=== PATIENT | male | born 1945 | race Two or more races ===

== ENCOUNTER 2018-01-03 01:16 | Emergency (ER) | payer OTHER ==
[~2018-01-03] VITALS: Ht 165.1 cm; Wt 73.5 kg
[2018-01-03] MEDS ORDERED: URIN D.S. TABL1 EACH PO (04:02)
[2018-01-03] MEDS ORDERED: TAMS0.4C PO (04:02)
== END 2018-01-03 04:14 | disposition home or self-care (01) ==
LOC: ER 01:16
DX: R33.8 Other retention of urine (principal)

== ENCOUNTER 2018-05-07 14:26 | Emergency (ER) | payer OTHER ==
[~2018-05-07] VITALS: Ht 167.6 cm; Wt 74.8 kg
[~2018-05-07 14:26] MED LIST: TAMS0.4C PO; URIN D.S. TABL1 EACH PO
== END 2018-05-07 20:39 | disposition home or self-care (01) ==
LOC: ER 14:26
DX: J16.8 Pneumonia due to other specified infectious organisms (principal); R06.02 Shortness of breath